=== PATIENT | male | born 1980 | race Caucasian/White ===

== ENCOUNTER 2021-09-16 13:05 | Emergency (ER) | payer OTHER, SELFPAY ==
[2021-09-16 13:23] VITALS: BP 140/101; PULSE 84; RESP 18; TEMP 37.2; O2SAT 99
--- NOTE | 2021-09-16 14:43 | ED.DENTAL ---
HPI - Dental/Oral General Chief complaint: Dental/Oral Stated complaint: tooth pain Source: patient and RN notes reviewed Mode of arrival: ambulatory History of Present Illness HPI Narrative: This is a 41-year-old male who presented to urgent care today with complaints of tooth pain tooth number 8, 9,10 with decay. Patient has an appointment with the dentist September. Patient has a injury to those teeth. The patient denies SOB, CP, palpitation, extremity numbness, lightheadedness, dizziness, constipation, diarrhea, chills, or fever. Related Data Allergies Allergy/AdvReac Type Severity Reaction Status Date / Time No Known Allergies Allergy Verified 09/16/21 14:11 Review of Systems Review of Systems: A 14 organ system Review of Systems was performed and pertinent positives included in the HPI, otherwise remaining ROS is negative. [facility] Family History Family History (Updated 09/16/21 @ 14:44 by LESA De La Torre-C) Other Family history non-contributory Exam Narrative: GENERAL: This is a well-nourished, well-developed patient, in no apparent distress. HEAD: normocephalic, atraumatic., Decay in chipping of tooth #8, 9,10 EYES: PERRL. Sclera clear/white. Vision is grossly intact. EARS: External ears normal, auditory canals clear and without drainage, TMs normal without perforation. Hearing grossly intact. NOSE: External nose normal with no obvious nasal discharge, nares without redness, no rhinorrhea. THROAT: Mucous membranes moist, posterior pharynx clear. NECK: Neck supple, non-tender without lymphadenopathy, masses or thyromegaly. CARDIOVASCULAR: Regular rate and rhythm without murmurs, gallops, or rubs. RESPIRATORY: Clear to auscultation. Breath sounds equal bilaterally. No wheezes, rales, or rhonchi. GASTROINTESTINAL: Abdomen soft, non-tender, nondistended. Bowel sounds are active. No hepato-splenomegaly, or palpable masses. No guarding. SKIN: warm, intact with no suspicious lesions or rash, good texture and turgor. NEURO: awake, alert, and oriented to person, place and time. There were no obvious focal neurologic abnormalities. Steady gait EXTREMITIES: Normal range of motion. No edema. No calf tenderness. Negative Homans sign bilaterally. BACK: Nontender without deformity or crepitance. No flank tenderness. Course Course Emergency Course: Patient will be given amoxicillin 500 mg 3 times daily x10 days in ibuprofen 800 mg Vital Signs Vital signs: Vital Signs Temperature 98.9 F 09/16/21 13:23 Pulse Rate 84 09/16/21 13:23 Respiratory Rate 18 09/16/21 13:23 Blood Pressure 140/101 H 09/16/21 13:23 Pulse Oximetry 99 09/16/21 13:23 Temperature 98.9 F 09/16/21 13:23 Pulse Rate 84 09/16/21 13:23 Respiratory Rate 18 09/16/21 13:23 Blood Pressure 140/101 H 09/16/21 13:23 Pulse Oximetry 99 09/16/21 13:23 MDM - Dental/Oral Differential Diagnosis Differential diagnosis: Likely gingival abscess, dental caries, toothache, dental abscess and fracture of tooth Discharge Plan Discharge Clinical Impression: Dental abscess, Dental caries Fracture of tooth Qualifiers: Encounter type: initial encounter Fracture type: closed Qualified Code(s): S02.5XXA - Fracture of tooth (traumatic), initial encounter for closed fracture Patient Disposition: Home, Self-Care Condition: Stable Instructions: Antibiotic Form, Dental Abscess (ED) Additional Instructions: Avoid temperature extremes May apply heat or ice to the face Gentle brushing and flossing Antibiotic as directed Tylenol for lesser pain Use ibuprofen regularly Use the medication as provided for severe pain--caution each tablet contains 325 mg of Tylenol--the maximum dose of Tylenol is 4000 mg in 24 hours. This medication may cause constipation consider starting a laxative at this time Follow-up with the dentist as soon as possible--see the list provided Prescriptions: New amoxicillin 500 mg capsule
== END 2021-09-16 14:47 | disposition home or self-care (01) ==
PROVIDERS: Emergency Provider Nurse Practitioner
DX: K04.7 Periapical abscess without sinus (principal); K02.9 Dental caries, unspecified; S02.5XXA Fracture of tooth (traumatic), initial encounter for closed fracture; X58.XXXA Exposure to other specified factors, initial encounter
CPT/HCPCS: 99213; G0463

== ENCOUNTER 2021-10-25 16:54 | Emergency (ER) | payer OTHER, SELFPAY ==
[2021-10-25 17:03] VITALS: BP 145/104; PULSE 98; RESP 18; TEMP 37.5; O2SAT 99
--- NOTE | 2021-10-25 17:08 | ED.HEATRA ---
HPI - Head Injury General Chief complaint: Head Injury Stated complaint: fell at work hit head Time Seen by Provider: 10/25/21 17:08 Source: patient and RN notes reviewed History of Present Illness HPI Narrative: Patient a 41-year-old male who presents the urgent care with complaints of a fall at approximately 10 AM this morning. Patient states that he was at work walking through a row of cars and slipped falling on his back and hitting his head. Patient states that he did not attempt to catch his fall because it happened so fast . Patient states that he continued to work throughout the day without any complications, confusion, weakness, fatigue or lethargy. Patient states that he has had bouts of where he has had blurry vision like I did not have my glasses on . Patient states that his headache has gone from a 10 to a 2 with 4 Tylenol. Patient states he took the Tylenol around lunchtime. Patient currently denies of any nausea, vomiting, changes in vision, extreme pain, weakness, confusion or lethargy. Patient has been able to function normal and did drive himself to the facility. No other acute complaints. No acute distress noted. Patient read the plan of care. Some parts of this dictation were generated by voice recognition software and may contain typographical and/or grammatical inaccuracies. Related Data Home Medications Medication Instructions Recorded Confirmed No Home Medications 10/25/21 10/25/21 Allergies Allergy/AdvReac Type Severity Reaction Status Date / Time No Known Allergies Allergy Verified 10/25/21 17:09 Review of Systems Review of Systems: CONSTITUTIONAL: Denies fever, chills, or sweats. EYES: Denies visual changes, redness, or discharge. ENT: Denies rhinorrhea, congestion, sore throat, or otalgia. CARDIOVASCULAR: Denies chest pain, palpitations, or edema. RESPIRATORY: Denies cough or dyspnea. GASTROINTESTINAL: Denies abdominal pain, nausea, vomiting, or diarrhea. GENITOURINARY: Denies dysuria or hematuria. SKIN: Denies rash or itching. MUSCULOSKELETAL: Denies back pain, joint pain, or myalgia. NEUROLOGIC: Denies headache, numbness, or weakness. Reports of a closed head injury due to fall All other systems reviewed are negative, except as documented in HPI. [facility] Family History Family History (Updated 09/16/21 @ 14:44 by Sonda R. Jono, MARINE MECHANIC-C) Other Family history non-contributory Comments At the time of my signature, I reviewed and agree with the nursing past medical, surgical, social, and family history. There is no relevant family history pertinent to the patient complaint. Exam Narrative: GENERAL: This is a well-nourished, well-developed patient, in no apparent distress. HEAD: normocephalic, atraumatic. EYES: PERRL. Sclera clear/white. Vision is grossly intact. EARS: External ears normal NOSE: External nose normal with no obvious nasal discharge, nares without redness, no rhinorrhea. THROAT: Mucous membranes moist NECK: Neck supple, non-tender without lymphadenopathy, range of motion within normal limits without cervical tenderness CARDIOVASCULAR: Regular rate and rhythm without murmurs, gallops, or rubs. RESPIRATORY: Clear to auscultation. Breath sounds equal bilaterally. No wheezes, rales, or rhonchi. SKIN: No hematoma or tenderness noted to the occipital region. Warm, intact with no suspicious lesions or rash, good texture and turgor. NEURO: awake, alert, and oriented to person, place and time. There were no obvious focal neurologic abnormalities. EXTREMITIES: No clubbing, cyanosis, or edema. Course Course Level of Care: Express Care Visit Vital Signs Vital signs: Vital Signs Temperature 99.5 F 10/25/21 17:03 Pulse Rate 98 10/25/21 17:03 Respiratory Rate 18 10/25/21 17:03 Blood Pressure 145/104 H 10/25/21 17:03 Pulse Oximetry 99 10/25/21 17:03 Temperature 99.5 F 10/25/21 17:03 Pulse Rate 98 10/25/21 17:03 Respiratory Rate 18 10/25/21 17:0
== END 2021-10-25 17:34 | disposition home or self-care (01) ==
PROVIDERS: Emergency Provider Nurse Practitioner Family
DX: S09.90XA Unspecified injury of head, initial encounter (principal); W01.0XXA Fall on same level from slipping, tripping and stumbling without subsequent striking against object, initial encounter; I10 Essential (primary) hypertension
CPT/HCPCS: 99213; G0463

== ENCOUNTER 2021-12-31 15:20 | Emergency (ER) | payer OTHER, SELFPAY ==
[2021-12-31 15:25] VITALS: BP 130/83; PULSE 98; RESP 16; TEMP 36.6; O2SAT 100
[2021-12-31 15:31] VITALS: BP 130/83; PULSE 98; RESP 16; TEMP 36.6; O2SAT 100
--- NOTE | 2021-12-31 15:31 | ED.URI ---
HPI - URI/Sore Throat General Chief Complaint: Upper Respiratory Infection Stated Complaint: congestion cough headache Time Seen by Provider: 12/31/21 15:31 Source: patient and RN notes reviewed History of Present Illness HPI Narrative: Patient is a 41-year-old male who presents the urgent care with complaints of cough, chest congestion, sinus congestion. Patient states that symptoms started approximately 3 days ago and denies of any fever, sore throat, ear pain or body aches. Patient has been taking Mucinex, DayQuil, NyQuil and Zicam. Patient states he does have a history of childhood asthma but denies of any recent issues with shortness of breath. No other acute complaints. No acute distress noted. Patient aware of the plan of care. Some parts of this dictation were generated by voice recognition software and may contain typographical and/or grammatical inaccuracies. Related Data Allergies Allergy/AdvReac Type Severity Reaction Status Date / Time No Known Allergies Allergy Verified 12/31/21 15:30 Review of Systems Review of Systems: CONSTITUTIONAL: Denies fever, chills, or sweats. EYES: Denies visual changes, redness, or discharge. ENT: Reports of postnasal drainage and sinus congestion/pressure CARDIOVASCULAR: Denies chest pain, palpitations, or edema. RESPIRATORY: Reports of cough, wheezing at night and chest congestion GASTROINTESTINAL: Denies abdominal pain, nausea, vomiting, or diarrhea. GENITOURINARY: Denies dysuria or hematuria. SKIN: Denies rash or itching. MUSCULOSKELETAL: Denies back pain, joint pain, or myalgia. NEUROLOGIC: Denies headache, numbness, or weakness. All other systems reviewed are negative, except as documented in HPI. [facility] Family History Family History (Updated 09/16/21 @ 14:44 by ROLA De La Torre) Other Family history non-contributory Comments At the time of my signature, I reviewed and agree with the nursing past medical, surgical, social, and family history. There is no relevant family history pertinent to the patient complaint. Exam Narrative: GENERAL: This is a well-nourished, well-developed patient, in no apparent distress. HEAD: normocephalic, atraumatic. EYES: PERRL. Sclera clear/white. Vision is grossly intact. EARS: External ears normal, auditory canals clear and without drainage, moderately effused, injected/erythemic right TM. Left TM normal without perforation. Hearing grossly intact. NOSE: External nose normal with no obvious nasal discharge, nares without redness, no rhinorrhea. THROAT: Mucous membranes moist, posterior pharynx clear. Moderate postnasal drainage NECK: Neck supple CARDIOVASCULAR: Regular rate and rhythm without murmurs, gallops, or rubs. RESPIRATORY: Crackles noted throughout without wheezing SKIN: warm, intact with no suspicious lesions or rash, good texture and turgor. NEURO: awake, alert, and oriented to person, place and time. There were no obvious focal neurologic abnormalities. EXTREMITIES: No clubbing, cyanosis, or edema. Course Course Level of Care: Express Care Visit Vital Signs Vital signs: Vital Signs Temperature 97.8 F 12/31/21 15:25 Pulse Rate 98 12/31/21 15:25 Respiratory Rate 16 12/31/21 15:25 Blood Pressure 130/83 12/31/21 15:25 Pulse Oximetry 100 12/31/21 15:25 Temperature 97.8 F 12/31/21 15:31 Pulse Rate 98 12/31/21 15:31 Respiratory Rate 16 12/31/21 15:31 Blood Pressure 130/83 12/31/21 15:31 Pulse Oximetry 100 12/31/21 15:31 Reviewed MDM - URI/Sore Throat MDM Narrative Medical decision making narrative: Advised the patient to complete the steroid regimen as prescribed. Complete the antibiotic regimen for the right ear infection as prescribed. Use the inhaler as needed for wheezing and prior to bedtime. Take a daily antihistamine such as Claritin or Zyrtec. Use a humidifier at night. Be sure to eat and drink with the medications. Do not sleep with a fan or the windows open. If you
== END 2021-12-31 15:42 | disposition home or self-care (01) ==
PROVIDERS: Emergency Provider Nurse Practitioner Family
DX: J40 Bronchitis, not specified as acute or chronic (principal); H66.91 Otitis media, unspecified, right ear; I10 Essential (primary) hypertension; I25.2 Old myocardial infarction
CPT/HCPCS: 99213; G0463

== ENCOUNTER 2022-09-05 11:44 | Emergency (ER) | payer SELFPAY ==
[2022-09-05 12:09] VITALS: BP 139/100; PULSE 87; RESP 18; TEMP 36.4; O2SAT 99
== END 2022-09-05 16:13 | disposition left against medical advice (07) ==
DX: R10.32 Left lower quadrant pain (principal)
CPT/HCPCS: 99199

== ENCOUNTER 2024-07-20 18:24 | Emergency (ER) | payer SELFPAY ==
--- NOTE | ~2024-07-20 | XR_ITS ---
EXAM: XR finger 1st LT min 2V DATE: 07/20/2024 18:44 HISTORY: lac . COMPARISON: None available. FINDINGS: Normal mineralization. No fracture or dislocation. No lytic or blastic lesion. Mild scatte red degenerative changes. No erosion or periosteal change. Soft tissue swelling and bandage material over the thumb. IMPRESSION: No acute osseous finding in the left thumb. Reviewed, dictated and finalized at location K.
[2024-07-20 18:28] VITALS: BP 148/97; PULSE 78; RESP 18; TEMP 36.6; O2SAT 100
--- NOTE | 2024-07-20 21:19 | PC.NURSE ---
lac tray, lidocaine and lac tray given to PA.
--- NOTE | 2024-07-20 21:24 | ED.WOUNDLAC ---
HPI - Wound/Laceration General Chief Complaint: Wound/Laceration Stated Complaint: finger lac Time Seen by Provider: 07/20/24 20:25 Source: patient Mode of arrival: ambulatory Limitations: no limitations History of Present Illness HPI narrative: Patient is a 44-year-old male who presents the ED with report of a laceration to his left thumb. Patient reports he was using a knife to tried to cut open a water bottle when he sustained a laceration to his left thumb. Denies any other injuries. Denies numbness. Tetanus is up-to-date. Related Data Allergies Allergy/AdvReac Type Severity Reaction Status Date / Time No Known Allergies Allergy Verified 09/05/22 11:45 Review of Systems Review of Systems: All systems reviewed & are unremarkable except as noted in HPI. All systems reviewed & are unremarkable except as noted in HPI and below PMFSH Family History Family History Other Family history non-contributory Exam Narrative: GENERAL: Well appearing, obese with BMI of 38.5, non-toxic, in no acute distress. HEAD: Normocephalic, atraumatic. RESPIRATORY: Airway patent, respirations nonlabored. CARDIOVASCULAR: Regular rate and rhythm. Radial pulses intact. MUSCULOSKELETAL: Moves all extremities. Minimal limited ROM of L thumb d/t pain. Sensation intact throughout digit. SKIN: Warm, dry, normal color. Approx 2cm linear laceration across extensor surface of L thumb just distal from IP joint. Minimal active bleeding. No pulsatile bleeding or obvious underlying ligamentous injury. NEURO: A&O X3. Speech clear. PSYCHIATRIC: Appropriate mood and affect. Normal interaction. Course Vital Signs Vital signs: Vital Signs Temperature 98 F 07/20/24 18:28 Pulse Rate 78 07/20/24 18:28 Respiratory Rate 18 07/20/24 18:28 Blood Pressure 148/97 H 07/20/24 18:28 Pulse Oximetry 100 07/20/24 18:28 Temperature 98 F 07/20/24 18:28 Pulse Rate 78 07/20/24 18:28 Respiratory Rate 18 07/20/24 18:28 Blood Pressure 148/97 H 07/20/24 18:28 Pulse Oximetry 100 07/20/24 18:28 Procedures Laceration Laceration 1: Date: 10/30/24 Time: 21:40 Site: hand Side (If applicable): left (thumb) Size (cm): 2 Description: linear Depth: simple, single layer Local Anesthetic: lidocaine 1% Amount of anesthesia used (mL): 5 Pre-repair: wound explored, irrigated and irrigated extensively ====== Skin Level ====== Skin layer closed with: nylon Size (cm): 5-0 Number of sutures: 5 Technique: simple, interrupted ====== Subcutaneous Layer ====== ====== Muscle Layer ====== ====== Tendon Layer ====== MDM - Wound/Laceration MDM Narrative Medical decision making narrative: X-ray without evidence of fracture or foreign body. Tetanus is up-to-date. Laceration repaired without complications. Patient given wound care instructions and reasons to return. Discharged in stable condition. Medical Records Attestation: I reviewed the patient's medical records. Imaging Data Attestation: I personally reviewed and interpreted this imaging study as follows: Radiologist's impression: ITS Impressions Finger X-Ray 07/20/24 18:47 IMPRESSION: No acute osseous finding in the left thumb. Discharge Plan Discharge Clinical Impression: Laceration of left thumb Qualifiers: Encounter type: initial encounter Damage to nail status: without damage Foreign body presence: without foreign body Qualified Code(s): S61.012A - Laceration without foreign body of left thumb without damage to nail, initial encounter Patient Disposition: Home, Self-Care Condition: Stable Instructions: Antibiotic Form, Care For Your Stitches (ED), Laceration (ED) Additional Instructions: Return to the ED or visit an urgent care or your PCP for follow-up and wound check/suture removal in 10 to 14 days. Keep the wound as dry as possible for 24 hours. You may remove the bandage after 24 hours and wash with simple soap and water, but do not scrub. Keep bandaged if using your hands. Return to the ED if you experience uncontrolled bleeding, fever, chills, pus-like drainage, or redness/swelling/warmth surrounding the wound, as these could be signs of an infection. Prescriptions: No Action prednisone 10 mg tablet See Rx Instructions .ROUTE .COMPLEX Qty: 30 0RF Rx Instructions: 4 tabs daily for days 1-3, 3 tabs daily for days 4-6, 2 tabs daily for days 7-9, 1 tab daily for days 10-12 albuterol sulfate 90 mcg/actuation HFA aerosol inhaler 2 puff INHALATION QID PRN (Reason: shortness of breath or wheezing) Qty: 8 0RF amoxicillin 875 mg tablet 875 mg PO Q12H Qty: 20 0RF Follow-up/Referrals: PHYSICIAN,SET UP OPERATOR [Primary Care Provider] - Time of Disposition: 21:53
== END 2024-07-20 22:13 | disposition home or self-care (01) ==
PROVIDERS: Emergency Provider Physician Assistant
DX: S61.012A Laceration without foreign body of left thumb without damage to nail, initial encounter (principal); W26.0XXA Contact with knife, initial encounter
CPT/HCPCS: 12001; 73140; 99283

== ENCOUNTER 2024-08-05 15:02 | Emergency (ER) | payer SELFPAY ==
[2024-08-05 15:13] VITALS: BP 153/103; PULSE 90; RESP 18; TEMP 36.6; O2SAT 98
--- NOTE | 2024-08-05 15:31 | ED_ITS ---
HPI - Wound/Laceration General Chief Complaint: Wound/Laceration Stated Complaint: Suture Removal Time Seen by Provider: 08/05/24 15:32 Source: patient, RN notes reviewed and old records reviewed Mode of arrival: ambulatory Limitations: no limitations History of Present Illness HPI narrative: 44-year-old male presents to the [facility] to have sutures removed that were placed on the 20 of July in [place] emergency room. Areas well approximated, [address] Related Data Allergies Allergy/AdvReac Type Severity Reaction Status Date / Time No Known Allergies Allergy Verified 09/05/22 11:45 Review of Systems Review of Systems: All systems reviewed & are unremarkable except as noted in HPI and below Constitutional: Constitutional: Reports no additional constitutional complaints ENT: Reports system reviewed and no additional complaints, except as documented Cardiovascular: Cardiovascular: Reports no additional cardiovascular complaints, Denies chest pain and Denies dyspnea Respiratory: Respiratory: Reports no additional respiratory complaints, Denies chest congestion, Denies cough and Denies dyspnea Gastrointestinal: Gastrointestinal: Reports no additional gastrointestinal complaints, Denies abdominal pain, Denies nausea and Denies vomiting Musculoskeletal: Musculoskeletal: Reports no additional musculoskeletal complaints Integumentary/Breasts: Skin/Breast: Reports as per HPI PMFSH Family History Family History Other Family history non-contributory Comments At the time of my signature, I reviewed and agree with the nursing past medical, surgical, social, and family history. There is no relevant family history pertinent to the patient complaint. Exam Const: General: cooperative, healthy appearing, comfortable, no acute distress, well developed, alert and well nourished Nutritional Appearance: well nourished Orientation/consciousness: patient oriented x3 Limitations: no limitations HENMT: Head: normal to inspection Ears: hearing grossly normal bilaterally and external ears normal Face/Nose/Sinus: Normal external nose present, normal facial exam and face symmetric Face and sinus: normal facial exam and face symmetric Eyes: General: appearance normal, both eyes and all related structures Alignment and Position: alignment normal Periorbital: periorbital findings normal Neck: Neck: normal visual inspection, full ROM, no lymphadenopathy and no meningeal signs Chest: Chest palpation & inspection: normal inspection of the chest Resp: Effort & Inspection: normal respiratory effort and able to speak in complete sentences Cardio: Rate: regular rate Skin: General skin exam: normal color and no rashes or lesions noted Lesions: no lesions Rashes: no rashes Wounds: no wounds Other: Wound to the thumb. Well approximated, [address] Full range of motion noted to the thumb. Neuro: General: patient oriented x3, gait normal, tone normal, moves all extremities and no meningeal signs Cognition (Neuro): normal cognition Speech: normal speech Gait exam (Neuro): Normal gait present Extrem: General: normal to inspection, full ROM, capillary refill normal and normal gait Psych: Appearance: grossly normal and well kempt Mental Status: mental status grossly normal Speech and movement: Normal speech and movement present and Clear speech present Affect: normal affect Attitude: cooperative Course Course Emergency Course: Area cleaned with Betadine, 5 sutures removed. She area is well approximated. Applied some skin glue Level of Care: Express Care Visit Vital Signs Vital signs: Vital Signs Temperature 98 F 08/05/24 15:13 Pulse Rate 90 08/05/24 15:13 Respiratory Rate 18 08/05/24 15:13 Blood Pressure 153/103 H 08/05/24 15:13 Pulse Oximetry 98 08/05/24 15:13 Oxygen Delivery Room Air 08/05/24 15:13 Temperature 98 F 08/05/24 15:13 Pulse Rate 90 08/05/24 15:13 Respiratory Rate 18 08/05/24 15:13 Blood Pressure 153/103 H 08/05/24 15:13 Pulse Oximetry 98 08/05/24 15:13 Oxygen Delivery Room Air 08/05/24 15:13 Reviewed MDM - Wound/Laceration MDM Narrative Medical decision making narrative: Patient sitting comfortably in exam room. Nontoxic, vitals are stable except b lood pressure mildly elevated. Patient presented for suture removal Sutures removed without issue Patient appropriate for outpatient treatment and follow-up Discharge instructions reviewed with patient, as well as provided in writing per nursing staff. The instructions also include specific and strict return/GO TO THE ER as well as f/u information. All questions have been answered, and the patient deny any further questions with discharge and discharge plan. Some parts of this dictation were generated by voice recognition software and may contain typographical and/or grammatical inaccuracies. Differential Diagnosis Differential diagnosis: Likely laceration, avulsion of skin and other Critical Care Time Critical Care Time Critical Care Time: No Discharge Plan Discharge Clinical Impression: Encounter for removal of sutures Patient Disposition: Home, Self-Care Condition: Stable Instructions: Antibiotic Form, Skin Adhesive Care (ED) Additional Instructions: Wash with warm soapy water. Follow-up with primary care Today blood pressure was 153/103 It is recommended you follow-up with your primary care provider for further evaluation and measurement of your blood pressure For new or worsening symptoms go directly to emergency room Patient Language: Ivorian Prescriptions: No Action albuterol sulfate 90 mcg/actuation HFA aerosol inhaler 2 puff INHALATION QID PRN (Reason: shortness of breath or wheezing) Qty: 8 0RF Follow-up/Referrals: PHYSICIAN,NATURAL GAS BASIS TRADER [Primary Care Provider] - Stand Alone Forms: Work/School Release IP Time of Disposition: 15:41
== END 2024-08-05 15:47 | disposition home or self-care (01) ==
PROVIDERS: Emergency Provider Nurse Practitioner
DX: Z48.02 Encounter for removal of sutures (principal)
CPT/HCPCS: 99211; G0463

== ENCOUNTER 2024-10-12 08:01 | Emergency (ER) | payer BC, SELFPAY ==
[2024-10-12 08:09] VITALS: BP 139/96; PULSE 97; RESP 18; TEMP 36.7; O2SAT 100
--- NOTE | 2024-10-12 08:23 | ED_ITS ---
HPI - General Adult General Chief complaint: Upper Respiratory Infection Stated complaint: Chest Congestion/Headache/Fatigue Source: patient Mode of arrival: ambulatory Limitations: no limitations History of Present Illness HPI narrative: Patient presents for evaluation of sick symptoms for last 3 days. Symptoms include sinus congestion, thick green drainage from the nares, productive cough of green sputum, chills and generalized body aches. No fever, SOB, sore throat, nausea, vomiting or diarrhea. He does not smoke. His son and significant other recently had similar symptoms. He is taking mucinex, dayquil and nyquil for his symptoms with some improvement thereafter. Related Data Allergies Allergy/AdvReac Type Severity Reaction Status Date / Time No Known Allergies Allergy Verified 10/12/24 08:18 Review of Systems Review of Systems: CONSTITUTIONAL: Reports chills. Denies fever or sweats. EYES: Denies visual changes, redness, or discharge. ENT:Reports sinus congestion and thick green drainage from the nares. Denies sore throat or otalgia. CARDIOVASCULAR: Denies chest pain, palpitations, or edema. RESPIRATORY: Reports productive cough of green sputum. Denies SOB GASTROINTESTINAL: Denies abdominal pain, nausea, vomiting, or diarrhea. GENITOURINARY: Denies dysuria or hematuria. SKIN: Denies rash or itching. MUSCULOSKELETAL: Reports generalized body aches NEUROLOGIC: Denies headache, numbness, dizziness, or weakness. PSYCHIATRIC: Denies anxiety or depression. PMFSH Past Medical History Medical History History of hypertension History of coronary artery disease Surgical History Surgical History No pertinent past surgical history Family History Family History Mother Family history non-contributory Social History Social History Smoking status: Never smoker Substance use: never Living arrangements: with family Gender identity (if verbalized by the patient): Male Exam Narrative: GENERAL: Well-appearing, well-nourished, and in no acute distress. HEAD: Normocephalic, atraumatic. EYES: PERRLA and EOMI. ENT: Nares clear, no rhinorrhea or epistaxis. Mucous membranes moist. Oropharynx without tonsillar hypertrophy exudate or other lesions. Bilateral TMs pearly alcantar nonbulging NECK: Supple. No adenopathy or masses. No carotid bruits or JVD CHEST: Clear to auscultation. No respiratory distress. No wheezes rales or rhonchi HEART: Regular rate and rhythm. No murmur heard. Normal peripheral pulses. ABDOMEN: Soft, nontender, nondistended, normal active bowel sounds. EXTREMITIES: Normal range of motion. No edema. SKIN: Warm, dry, no rash. NEURO: No focal deficits. Alert and oriented x3. PSYCH: Normal mood and affect. Course Course Emergency Course: This is a 44 year old male who presented for evaluation of sick symptoms. COVID and influenza negative. I offered CXR. Pt declined. Exam consistent with acute viral syndrome. Increase hydration. Will dc with tessalon. Follow up with primary provider. Go to the ER for worsening symptoms. Pt in agreement with plan of care. Level of Care: Express Care Visit Vital Signs Vital signs: Vital Signs Temperature 36.7 C 10/12/24 08:09 Pulse Rate 97 10/12/24 08:09 Respiratory Rate 18 10/12/24 08:09 Blood Pressure 139/96 H 10/12/24 08:09 Pulse Oximetry 100 10/12/24 08:09 Oxygen Delivery Room Air 10/12/24 08:09 Temperature 36.7 C 10/12/24 08:09 Pulse Rate 97 10/12/24 08:09 Respiratory Rate 18 10/12/24 08:09 Blood Pressure 139/96 H 10/12/24 08:09 Pulse Oximetry 100 10/12/24 08:09 Oxygen Delivery Room Air 10/12/24 08:09 Medical Decision Making Vital Signs Vital Signs: Vital Signs Temperature 36.7 C 10/12/24 08:09 Pulse Rate 97 10/12/24 08:09 Respiratory Rate 18 10/12/24 08:09 Blood Pressure 139/96 H 10/12/24 08:09 Pulse Oximetry 100 10/12/24 08:09 Oxygen Delivery Room Air 10/12/24 08:09 Temperature 36.7 C 10/12/24 08:09 Pulse Rate 97 10/12/24 08:09 Respiratory Rate 18 10/12/24 08:09 Blood Pressure 139/96 H 10/12/24 08:09 Pulse Oximetry 100 10/12/24 08:09 Oxygen Delivery Room Air 10/12/24 08:09 Lab Data Labs: Lab Results 10/12/24 Range/Units 08:24 POC Influenza A Ag Negative (Negative) POC Influenza B Ag Negative (Negative) POC SARS CoV-2 Ag Negative (Negative) Discharge Plan Discharge Clinical Impression: Acute viral syndrome Patient Disposition: Home, Self-Care Condition: Stable Instructions: Antibiotic Form, Viral Syndrome (ED) Patient Language: [place] Prescriptions: New benzonatate 200 mg capsule 200 mg PO TID PRN (Reason: cough) Qty: 30 0RF Follow-up/Referrals: Kathleen Barahona DO [Physician] - Stand Alone Forms: Work/School Release IP Time of Disposition: 08:34
[2024-10-12 08:28] LABS: EDCOVIDSCREEN Negative (Negative); EDINFLUASCREEN Negative (Negative); EDINFLUBSCREEN Negative (Negative)
--- OUTSIDE RECORDS SUMMARY | 2024-10-13 21:32 | XMS_ITS | Clinical Summary ---
Author Organization [facility] Address [address] [place] [address]. [place], [place] [id number] [place] [id number] Care Team Providers Care Workers Compensation Consultant Name Role Phone Antelmo Mattson MD Primary Care Provider [phone] Social History Tobacco Use Types Packs/Day Years Used Date Smoking Tobacco: Smoker, Current Status Unknown Sex and Gender Information Value Date Recorded Sex Assigned at Not on file Legal Sex Male 10:35 PM CDT Gender Identity Not on file Sexual Orientation Not on file Last Filed Vital Signs Vital Sign Reading Time Taken Comments Blood Pressure 122/66 06/24/2016 10:26 AM CDT Pulse 94 06/24/2016 10:26 AM CDT Temperature - - Respiratory Rate - - Oxygen Saturation - - Inhaled Oxygen Concentration - - Weight 90.9 kg (200 lb 6.1 oz) 06/24/2016 10:26 AM CDT Height 167.6 cm (5' 6 ) 06/24/2016 10:26 AM CDT Body Mass Index 32.34 06/24/2016 10:26 AM CDT Plan of Treatment Health Maintenance Due Date Last Done Comments Annual Physical 1985 Hepatitis C 2000 Hepatitis B Vaccines (1 of 3 - 19+ 3-dose series) 2001 COVID-19 Vaccine (2023-2 5 season) 2024 Influenza Adult (#1) 2024 DTaP, Tdap and Td Vaccines ( 2 - Td or Tdap) 05/03/2025 05/03/2015 HPV Vaccines Aged Out No longer eligi ble based on patient's age to complete this topic Meningococcal B Vaccine Aged Out No l onger eligible based on patient's age to complete this topic Meningococcal Vaccine Aged Out No timoteo kaushik eligible based on patient's age to complete this topic Pneumococcal Vaccine: Pediat rics (0 to 5 Years) and At-Risk Patients (6 to 64 Years) Aged Out No longer eligi ble based on patient's age to complete this topic RSV Immunizations Under 20 Months Aged Out No longer eligible based on patient's age to complete this topic Care Teams Workers Compensation Consultant Relationship Specialty Start Date End Date Antelmo Mattson MD PCP - General 06/22/15
--- OUTSIDE RECORDS SUMMARY | 2024-10-13 21:32 | XMS_ITS | CONTINUITY OF CARE DOCUMENT ---
Author Name keke davies Address Unknown Organization [facility] Address [address] [place] [address] Phone [phone] Care Team Providers Care Job Trainer Name Role Phone Saloni Angel MD Unavailable [phone] Saloni Angel MD Unavailable [phone] INSURANCE PROVIDERS Payer name Policy type / Coverage type [place] red constitution party ID [facility] [id number] Other [id number]
== END 2024-10-12 08:37 | disposition home or self-care (01) ==
PROVIDERS: Emergency Provider Nurse Practitioner
DX: B34.9 Viral infection, unspecified (principal); Z20.822 Contact with and (suspected) exposure to COVID-19; I10 Essential (primary) hypertension; I25.10 Atherosclerotic heart disease of native coronary artery without angina pectoris
CPT/HCPCS: 87426; 87804; 99203; G0463

== ENCOUNTER 2024-10-27 11:39 | Emergency (ER) | payer BC, SELFPAY ==
--- NOTE | ~2024-10-27 | XR_ITS ---
EXAMINATION: XR chest 2V DATE: 10/27/2024 12:56 INDICATION: 2 weeks of cough and fever TECHNIQUE: PA and lateral views of the chest were obtained. COMPARISON: None FINDINGS: The lungs are clear with no focal airspace opacities, pulmonary edema, pleural effusion or pneumothor ax. The cardiomediastinal silhouette is normal. Visualized bones and soft tissues are unremarkable. IMPRESSION: 1. Normal chest radiograph. Reviewed, dictated and finalized at location A. T OR NUT PICKER IMPRESSION: 1. Normal chest radiograph.
[2024-10-27 11:52] VITALS: BP 169/94; PULSE 108; RESP 20; TEMP 37.7; O2SAT 99
--- OUTSIDE RECORDS SUMMARY | 2024-10-27 11:53 | XMS_ITS | Clinical Summary ---
Author Organization [facility] Address [address] [place] [address] Care Team Providers Care Banjo Repairer Name Role Phone Antelmo Mattson MD Primary Care Provider [phone] Social History Tobacco Use Types Packs/Day Years [...] age to complete this topic Care Teams Banjo Repairer Relationship Specialty Start Date End Date Antelmo Mattson MD PCP - General 06/22/15
--- OUTSIDE RECORDS SUMMARY | 2024-10-27 11:53 | XMS_ITS | CONTINUITY OF CARE DOCUMENT ---
Author Name keke davies Address Unknown Organization [facility] Address [address] [address] [facility] [address] [place] [address] Phone [phone] Care Team Providers Care Blanching Machine Operator Name Role Phone Saloni Angel MD Unavailable [phone] Saloni Angel MD Unavailable [phone] INSURANCE PROVIDERS Payer name Policy type / Coverage type [place] red libertarian ID [facility] [id number] Other [id number]
--- OUTSIDE RECORDS SUMMARY | 2024-10-27 11:54 | XMS_ITS | CONTINUITY OF CARE DOCUMENT ---
Author Name keke davies Address Unknown Organization [facility] Address [address] [place] [address] Phone [phone] Care Team Providers Care Ext Js Developer Name Role Phone Saloni Angel MD Unavailable [phone] Saloni Angel MD Unavailable [phone] INSURANCE PROVIDERS Payer name Policy type / Coverage type [place] red constitution party ID [facility] [id number] Other [id number]
--- NOTE | 2024-10-27 12:34 | ED.URI ---
HPI - URI/Sore Throat General Chief Complaint: Upper Respiratory Infection Stated Complaint: Shortness of Breath Time Seen by Provider: 10/27/24 12:35 Source: patient and RN notes reviewed Mode of arrival: ambulatory Limitations: no limitations History of Present Illness HPI Narrative: 44-year-old male presented for complaint of cough and chest congestion and fever. reports temp up to 102. Patient also states he has been sick for 2 weeks, and symptoms worsened yesterday. Says coughing fits caused him to nearly vomit. Not taking anything for symptoms. Denies nausea, vomiting, diarrhea or lethargy. MD elicited complaint: cough Related Data Allergies Allergy/AdvReac Type Severity Reaction Status Date / Time No Known Allergies Allergy Verified 10/27/24 12:14 Review of Systems Review of Systems: ROS per [facility] Past Medical History Medical History History of hypertension History of coronary artery disease Surgical History Surgical History No pertinent past surgical history Family History Family History Mother Family history non-contributory Social History Social History Smoking status: Never smoker Substance use: never Living arrangements: with family Gender identity (if verbalized by the patient): Male Exam Narrative: GENERAL: mildly Ill-appearing, nontoxic no acute distress. EYES: PERRLA, conjunctivae clear ENT: Mucous membranes moist. TM pearly alcantar with dull light reflex bilaterally; no tragal tenderness. Oropharynx erythematous without lesions or exudate, no drooling, no hoarseness, no trismus, uvula midline. No tripod positioning, muffled voice, soft palate or pharyngeal wall bulging NECK: Supple. No lymphadenopathy CHEST: Clear to auscultation, breath sounds equal. No wheezing, rhonchi, rales, or stridor. No respiratory distress, speaks in full sentences. HEART: Regular rate and rhythm. No murmur heard. SKIN: Warm, dry, no rash. NEURO: Alert and oriented x3. PSYCH: Normal mood and affect Course Course Emergency Course: Patient is aware of diagnosis, understands and agrees to treatment plan. Anticipatory guidance given. Patient agrees to follow-up as directed and is aware of reasons to seek care at the emergency department. Portions of this record may have been created with voice recognition software Level of Care: Express Care Visit Vital Signs Vital signs: Vital Signs Temperature 99.9 F H 10/27/24 11:52 Pulse Rate 108 H 10/27/24 11:52 Respiratory Rate 20 10/27/24 11:52 Blood Pressure 169/94 H 10/27/24 11:52 Pulse Oximetry 99 10/27/24 11:52 Oxygen Delivery Room Air 10/27/24 11:52 Temperature 99.9 F H 10/27/24 11:52 Pulse Rate 108 H 10/27/24 11:52 Respiratory Rate 20 10/27/24 11:52 Blood Pressure 169/94 H 10/27/24 11:52 Pulse Oximetry 99 10/27/24 11:52 Oxygen Delivery Room Air 10/27/24 11:52 reviewed MDM - URI/Sore Throat MDM Narrative Medical decision making narrative: Discussed physical exam findings Negative flu, COVID, and chest x-ray reviewed with patient. Advised supportive measures and signs/symptoms to go to the ER. Pt is appropriate for outpt treatment and f/u. Differential Diagnosis Differential diagnosis: Likely upper respiratory infection, sinusitis and viral infection Lab Data Labs: Lab Results 10/27/24 Range/Units 12:56 POC Influenza A Ag Negative (Negative) POC Influenza B Ag Negative (Negative) POC SARS CoV-2 Ag Negative (Negative) Discharge Plan Discharge Clinical Impression: Bronchitis Patient Disposition: Home, Self-Care Condition: Stable Instructions: Acute Bronchitis (ED) Additional Instructions: negative flu and COVID Recommend Flonase spray and Zyrtec (or Claritin/Alexia) over the counter Cough syrup may cause drowsiness; avoid driving or take it at night time. Tylenol 1000mg every 8 hours as needed for pain Symptomatic treatment includes: rest, fluids, and increase humidity of the air at home. Follow up with your primary care provider in 1 week. Go to the ER for worsening symptoms or concerns. Patient Language: Taiwanese Prescriptions: New prednisone 50 mg tablet 50 mg PO DAILY Qty: 5 0RF albuterol sulfate 90 mcg/actuation HFA aerosol inhaler 2 inh inhalation QID PRN (Reason: shortness of breath or wheezing) Qty: 8.5 0RF Follow-up/Referrals: PHYSICIAN,CALL CENTER RECEPTIONIST [Primary Care Provider] - Stand Alone Forms: Work/School Release IP Time of Disposition: 13:16
[2024-10-27 12:58] LABS: EDCOVIDSCREEN Negative (Negative); EDINFLUASCREEN Negative (Negative); EDINFLUBSCREEN Negative (Negative)
== END 2024-10-27 13:18 | disposition home or self-care (01) ==
PROVIDERS: Emergency Provider Nurse Practitioner Family
DX: J40 Bronchitis, not specified as acute or chronic (principal); Z20.822 Contact with and (suspected) exposure to COVID-19; I10 Essential (primary) hypertension; I25.10 Atherosclerotic heart disease of native coronary artery without angina pectoris
CPT/HCPCS: 71046; 87426; 87804; 99213; G0463